=== PATIENT | male | born 1935 | race Caucasian/White ===

== ENCOUNTER 2021-02-25 11:09 | Emergency (ER) | payer OTHER ==
[~2021-02-25 11:09] MED LIST: AMOX TR-K CLV1 EAC4 PO; ASPIRIN CHEWABL81 MG PO; ATIVAN0.5 MG PO; CLOPIDOGREL75 MG PO; COREG12.5 MG PO; CRESTOR40 MG PO; JANUVIA50 MG PO; LEVAQUIN750 MG PO; LEXAPRO20 MG PO; MAG-OXIDE 400M400 MG PO; METFORMIN HCL500 MG PO; METRONIDAZOLE500 MG PO; NORCO 5-325 TA1 EACH PO; PANTOPRAZOLE SO40 MG PO; PRINIVIL20 MG PO; PROZAC20 MG PO; SINGULAIR10 MG PO; ULTRA-LIGHT RO1 EACH XX; URINOZINC PROS1 EACH PO; ZYPREXA 5MG TABL5 MG PO
[2021-02-25 12:34] LABS: BASOPHIL 0.2 % (0-2); HCT 33.2 % (42.0-52.0); HGB 11.3 g/dl (13.2-18.0); LYMPHOCYTE 6.5 % (15-48); MCV 88.1 fL (78.0-100.0); MONOCYTE 6.8 % (0-12); NRBC 0; PLT 116 K/uL (150-400); RBC 3.77 M/uL (4.70-6.00); RDW 14.3 % (11.5-14.0); WBC 6.2 K/uL (4.0-10.5)
[2021-02-25 12:53] LABS: ALBUMIN 3.5 g/dL (3.4-5.0); BILIRUBIN - TOTAL 0.5 mg/dL (0.2-1.0); BUN/CREAT RATIO (CALC) 12.1 RATIO; CREATININE 5.72 mg/dL (0.67-1.17); GLOBULIN (CALCULATION) 3.6 g/dL; POTASSIUM 5.5 mmol/L (3.5-5.1); TOTAL PROTEIN 7.1 g/dL (6.4-8.2)
[2021-02-25 18:28] LABS: BUN/CREAT RATIO (CALC) 13.2 RATIO; CREATININE 5.08 mg/dL (0.67-1.17); POTASSIUM 5.2 mmol/L (3.5-5.1)
[2021-02-26 06:47] LABS: BUN/CREAT RATIO (CALC) 12.6 RATIO; CREATININE 4.68 mg/dL (0.67-1.17); POTASSIUM 4.2 mmol/L (3.5-5.1)
[2021-02-26 16:03] LABS: HCT 31.5 % (42.0-52.0); HGB 10.5 g/dl (13.2-18.0); MCH 30.2 pg (25.0-31.0); MCHC 33.3 g/dL (32.0-36.0); MCV 90.5 fL (78.0-100.0); MPV 8.5 fL (6.0-9.5); RBC 3.48 M/uL (4.70-6.00); RDW 14.5 % (11.5-14.0); WBC 6.4 K/uL (4.0-10.5)
[2021-02-26 16:20] LABS: BUN/CREAT RATIO (CALC) 13.2 RATIO; CREATININE 4.16 mg/dL (0.67-1.17); POTASSIUM 4.8 mmol/L (3.5-5.1)
== END 2021-02-26 17:51 | disposition other institution (70) ==
LOC: FER 11:09
PROVIDERS: Emergency Medicine; Emergency Medicine Emergency Medical Services
DX: N17.9 Acute kidney failure, unspecified (principal); R10.84 Generalized abdominal pain; I10 Essential (primary) hypertension; E11.9 Type 2 diabetes mellitus without complications; Z79.84 Long term (current) use of oral hypoglycemic drugs; Z79.899 Other long term (current) drug therapy; Z20.822 Contact with and (suspected) exposure to COVID-19
CPT/HCPCS: 36415; 80048; 80053; 83605; 84145; 84443; 84484; 85025; J7030; U0002

== ENCOUNTER 2021-08-06 15:45 | Inpatient (IN) | payer OTHER ==
[~2021-08-06] VITALS: Ht 172.7 cm; Wt 95.0 kg
[2021-08-06 18:30] LABS: BASOPHIL 0.2 % (0-2); EOSINOPHIL 2.3 % (0-7); HCT 38.6 % (42.0-52.0); HGB 12.6 g/dl (13.2-18.0); LYMPHOCYTE 12.1 % (15-48); MCH 29.9 pg (25.0-31.0); MCHC 32.6 g/dL (32.0-36.0); MCV 91.5 fL (78.0-100.0); MONOCYTE 6.4 % (0-12); MPV 9.5 fL (6.0-9.5); NEUTROPHIL 78.6 % (41-80); NRBC 0; RBC 4.22 M/uL (4.70-6.00); RDW 14.6 % (11.5-14.0); WBC 5.6 K/uL (4.0-10.5)
[2021-08-06 18:37] LABS: BILIRUBIN NEGATIVE (NEGATIVE); BLOOD TRACE-INTACT Ery/uL (NEGATIVE); CLARITY CLEAR (CLEAR); COLOR YELLOW (YELLOW); GLUCOSE (U) NORMAL (NORMAL); LEUKOCYTES NEGATIVE Leu/uL (NEGATIVE); NITRITE NEGATIVE (NEGATIVE); PROTEIN TRACE (LOW) mg/dL (NEGATIVE); SPECIFIC GRAVITY 1.025 (1.001-1.030); UROBILINOGEN 0.2 mg/dL (0.2-1.0); pH 5.5 (5.0-9.0)
[2021-08-06 18:37] LABS: PLT 94 K/uL (150-400)
[2021-08-06 18:45] LABS: BUN/CREAT RATIO (CALC) 30.9 RATIO; CREATININE 2.17 mg/dL (0.67-1.17); POTASSIUM 5.9 mmol/L (3.5-5.1)
[2021-08-06 18:52] LABS: BACTERIA TRACE; URINARY WBC RARE
[2021-08-06 18:53] LABS: AMORPHOUS URATES CRYSTALS TRACE; MUCOUS TRACE
[2021-08-07 01:12] LABS: CREATININE 1.94 mg/dL (0.67-1.17); POTASSIUM 5.2 mmol/L (3.5-5.1)
[2021-08-07 07:46] LABS: BASOPHIL 0.2 % (0-2); EOSINOPHIL 2.3 % (0-7); HCT 35.4 % (42.0-52.0); HGB 11.4 g/dl (13.2-18.0); LYMPHOCYTE 16.4 % (15-48); MCH 29.7 pg (25.0-31.0); MCHC 32.2 g/dL (32.0-36.0); MCV 92.2 fL (78.0-100.0); MONOCYTE 7.9 % (0-12); MPV 9.1 fL (6.0-9.5); NEUTROPHIL 72.5 % (41-80); NRBC 0; PLT 77 K/uL (150-400); RBC 3.84 M/uL (4.70-6.00); RDW 14.6 % (11.5-14.0); WBC 4.3 K/uL (4.0-10.5)
[2021-08-07 07:59] LABS: ALBUMIN 2.9 g/dL (3.4-5.0); BILIRUBIN - TOTAL 0.4 mg/dL (0.2-1.0); BUN/CREAT RATIO (CALC) 30.1 RATIO; CREATININE 1.86 mg/dL (0.67-1.17); GLOBULIN (CALCULATION) 3.2 g/dL; POTASSIUM 5.4 mmol/L (3.5-5.1); TOTAL PROTEIN 6.1 g/dL (6.4-8.2)
[2021-08-07] MEDS ORDERED: COREG12.5 MG PO (09:43)
[2021-08-07] MEDS ORDERED: FINASTERIDE5 MG PO (09:43)
[2021-08-07] MEDS ORDERED: ACTOS30 MG PO (09:44)
[2021-08-07] MEDS ORDERED: CRESTOR40 MG PO (09:45)
[2021-08-07] MEDS ORDERED: FLOMAX0.4 MG PO (09:46)
[2021-08-07] MEDS ORDERED: TRAZODONE 100M100 MG PO (09:47)
--- NOTE | 2021-08-07 15:39 | NUR ---
08/07/21 Mr. Hodges lives at home with his spouse and a daughter. They have a night time caregiver. He is current with [facility]. Mr. Hodges has a hopital bed, walker, 3in1, and shower chaair. This social sciences chair met with Ms. Hodges and their daughter, Jing Strauss. They are interested in Hospice service. A referral was made to Hospice and [facility] will meet with the family at bedside today. - Family is aware that they will be responsible for the bill if patient is transferred home by EMS. - Please notify Hospice at discharge at [phone] and ask for Hospice.
[2021-08-08 04:12] LABS: BASOPHIL 0.6 % (0-2); EOSINOPHIL 2.8 % (0-7); HCT 32.8 % (42.0-52.0); HGB 10.7 g/dl (13.2-18.0); LYMPHOCYTE 18.4 % (15-48); MCH 29.4 pg (25.0-31.0); MCHC 32.6 g/dL (32.0-36.0); MCV 90.1 fL (78.0-100.0); MONOCYTE 8.8 % (0-12); MPV 9.3 fL (6.0-9.5); NEUTROPHIL 68.6 % (41-80); NRBC 0; RBC 3.64 M/uL (4.70-6.00); RDW 14.5 % (11.5-14.0); WBC 3.5 K/uL (4.0-10.5)
[2021-08-08 04:14] LABS: PLT 64 K/uL (150-400)
[2021-08-08 04:42] LABS: ALBUMIN 2.9 g/dL (3.4-5.0); BILIRUBIN - TOTAL 0.5 mg/dL (0.2-1.0); BUN/CREAT RATIO (CALC) 25.7 RATIO; C-REACTIVE PROTEIN 0.7 mg/dL (<=0.90); CREATININE 1.67 mg/dL (0.67-1.17); GLOBULIN (CALCULATION) 2.9 g/dL; POTASSIUM 5.4 mmol/L (3.5-5.1); TOTAL PROTEIN 5.8 g/dL (6.4-8.2)
[2021-08-09 05:46] LABS: BASOPHIL 0.3 % (0-2); EOSINOPHIL 3.1 % (0-7); HCT 30.8 % (42.0-52.0); HGB 10.2 g/dl (13.2-18.0); LYMPHOCYTE 22.6 % (15-48); MCHC 33.1 g/dL (32.0-36.0); MCV 87.5 fL (78.0-100.0); MONOCYTE 8.5 % (0-12); MPV 8.9 fL (6.0-9.5); NEUTROPHIL 64.4 % (41-80); NRBC 0; RBC 3.52 M/uL (4.70-6.00); RDW 14.4 % (11.5-14.0); WBC 3.5 K/uL (4.0-10.5)
[2021-08-09 06:04] LABS: ALBUMIN 2.7 g/dL (3.4-5.0); BILIRUBIN - TOTAL 0.5 mg/dL (0.2-1.0); BUN/CREAT RATIO (CALC) 22.1 RATIO; CREATININE 1.4 mg/dL (0.67-1.17); GLOBULIN (CALCULATION) 2.8 g/dL; POTASSIUM 4.7 mmol/L (3.5-5.1); TOTAL PROTEIN 5.5 g/dL (6.4-8.2)
[2021-08-09 06:05] LABS: PLT 80 K/uL (150-400)
--- NOTE | 2021-08-09 16:52 | NUR ---
PATIENT WENT HOME WITH HOSPICE [id number] BY WAY OF CAR
--- NOTE | 2021-08-09 16:53 | NUR ---
CALLED HOSPICE AND INFORMED THEM OF PATIENTS D/C TO HOME TALKED TO PAUL.
== END 2021-08-09 13:45 | disposition hospice, home (50) | DRG 689 ==
LOC: FER 15:45 → FICU 21:15 → FMS 21:15 → FICU 08-07 00:14 → FMS 08-08 13:38
PROVIDERS: Family Medicine; Nurse Practitioner; Nurse Practitioner Family; ADMIT Internal Medicine
DX: N30.00 Acute cystitis without hematuria (principal); G93.41 Metabolic encephalopathy; D61.818 Other pancytopenia; N17.9 Acute kidney failure, unspecified; B96.89 Other specified bacterial agents as the cause of diseases classified elsewhere; Z66 Do not resuscitate; Z51.5 Encounter for palliative care; E87.5 Hyperkalemia; I95.9 Hypotension, unspecified; Z20.822 Contact with and (suspected) exposure to COVID-19; E11.22 Type 2 diabetes mellitus with diabetic chronic kidney disease; K21.9 Gastro-esophageal reflux disease without esophagitis; I13.10 Hypertensive heart and chronic kidney disease without heart failure, with stage 1 through stage 4 chronic kidney disease, or unspecified chronic kidney disease; E87.70 Fluid overload, unspecified; F03.90 Unspecified dementia, unspecified severity, without behavioral disturbance, psychotic disturbance, mood disturbance, and anxiety; N18.30 Chronic kidney disease, stage 3 unspecified; Z98.890 Other specified postprocedural states; Z87.442 Personal history of urinary calculi; Z86.73 Personal history of transient ischemic attack (TIA), and cerebral infarction without residual deficits; Z82.3 Family history of stroke; Z79.02 Long term (current) use of antithrombotics/antiplatelets; Z79.899 Other long term (current) drug therapy
CPT/HCPCS: 36415; 36600; 70450; 70551; 71045; 80048; 80053; 81001; 82140; 82803; 82962; 83605; 84145; 85025; 86140; 87040; 87088; 94010; 97162; 97166; 97530-GP; 97535; J2185; J7030; J7120; U0002

== ENCOUNTER 2021-08-21 20:33 | Emergency (ER) | payer OTHER ==
[~2021-08-21 20:33] MED LIST changes: +ACTOS30 MG PO; +FINASTERIDE5 MG PO; +FLOMAX0.4 MG PO; +TRAZODONE 100M100 MG PO
[2021-08-21 21:13] LABS: BILIRUBIN NEGATIVE (NEGATIVE); BLOOD TRACE-LYSED Ery/uL (NEGATIVE); CLARITY CLEAR (CLEAR); COLOR YELLOW (YELLOW); GLUCOSE (U) NORMAL (NORMAL); LEUKOCYTES NEGATIVE Leu/uL (NEGATIVE); NITRITE NEGATIVE (NEGATIVE); PROTEIN NEGATIVE (NEGATIVE); UROBILINOGEN 0.2 mg/dL (0.2-1.0)
[2021-08-21 21:21] LABS: AMORPHOUS URATES CRYSTALS TRACE; BASOPHIL 0.3 % (0-2); EOSINOPHIL 2.8 % (0-7); HGB 10.8 g/dl (13.2-18.0); LYMPHOCYTE 22.8 % (15-48); MCH 29.9 pg (25.0-31.0); MCHC 32.7 g/dL (32.0-36.0); MCV 91.4 fL (78.0-100.0); MONOCYTE 8.7 % (0-12); MPV 9.4 fL (6.0-9.5); NEUTROPHIL 64.4 % (41-80); NRBC 0; RBC 3.61 M/uL (4.70-6.00); RDW 14.6 % (11.5-14.0); TRANSITIONAL EPITHELIAL CELLS RARE; WBC 2.9 K/uL (4.0-10.5)
[2021-08-21 21:26] LABS: PLT 98 K/uL (150-400)
[2021-08-21 21:28] LABS: BILIRUBIN - TOTAL 0.3 mg/dL (0.2-1.0); BUN/CREAT RATIO (CALC) 28.1 RATIO; CREATININE 1.71 mg/dL (0.67-1.17); POTASSIUM 4.9 mmol/L (3.5-5.1)
[2021-08-21 21:32] LABS: LACTIC ACID 0.3 mmol/L (0.4-1.9)
[2021-08-21] MEDS ORDERED: AUGMENTIN 500-1 EACH PO (22:59)
== END 2021-08-22 00:10 | disposition home or self-care (01) ==
LOC: FER 20:33
PROVIDERS: Nurse Practitioner Family
DX: N39.0 Urinary tract infection, site not specified (principal); E10.22 Type 1 diabetes mellitus with diabetic chronic kidney disease; I12.9 Hypertensive chronic kidney disease with stage 1 through stage 4 chronic kidney disease, or unspecified chronic kidney disease; N18.9 Chronic kidney disease, unspecified; Z20.822 Contact with and (suspected) exposure to COVID-19
CPT/HCPCS: 36415; 80053; 81001; 83605; 85025; J2543; U0002